=== PATIENT | male | born 1950 | race Caucasian/White ===

== ENCOUNTER → 2016-12-11 | Outpatient (CLI) | payer MEDICARE ==
[2016-12-11 09:43] LABS: ALT 31 U/L (21-72); AST 33 U/L (17-59); Cholesterol 127 mg/dL (<200); Creatine Kinase 208 U/L (55-170); HDL Cholesterol 32 mg/dL (40-60); Triglycerides 127 mg/dL (<150)
== END | disposition home or self-care (01) ==
LOC: LABWHC1 08:47
PROVIDERS: ATTEND Internal Medicine Interventional Cardiology
DX: I25.10 Atherosclerotic heart disease of native coronary artery without angina pectoris (principal); E78.5 Hyperlipidemia, unspecified
CPT/HCPCS: 36415; 80061; 82550; 84450; 84460

== ENCOUNTER 2017-02-18 17:19 | Inpatient (IN) | payer MEDICARE ==
[2017-02-18] MEDS ORDERED: SODIUM CHLORIDE 0.9% 1,000 ML IV STA (17:53)
--- NOTE | 2017-02-18 17:56 | ED ---
Recheck HPI - General Chief Complaint: Recheck/Abnormal Lab/Rx Stated Complaint: ABNORMAL LABS, CK LEVEL HIGH Time Seen by Provider: 02/18/17 17:40 Source: patient, RN notes reviewed Mode of arrival: ambulatory Limitations: no limitations - History of Present Illness Initial Comments: Patient is a 67-year-old male presents to the emergency room for evaluation of the lab recheck. Patient states that he had a lab draw this morning at Dr. Cali's office as a routine for his physical next week. Patient states he received a phone call that his CK level was elevated and needed to come to the emergency room immediately. Patient does state that he was playing tennis for about 2 hours, an hour and a half before his blood draw. Patient does state that he works out daily. Patient states he either works out at [employer] or plays a sport daily. Patient states he has a history of [place] about 21 years ago. Patient states he follows up with psychiatric secretary, Dr. Hallman. Patient states last visit with Dr. Hallman in November he was told his CK level was slightly elevated but nothing concerning. Patient also states he was advised to immediately discontinue his simvastatin after receiving his CK level today. Patient states that recently he noticed he has on-and-off weakness/fatigue of his hands. Patient states it only lasts a few minutes and goes away. Patient denies any weakness right now. Patient denies any symptoms right now. Patient denies headache, dizziness, chest pain, shortness of breath, nausea, vomiting. - Related Data Home Medications Medication Instructions Recorded Confirmed Aspirin EC [Ecotrin Low Dose] 81 mg PO HS 02/18/17 02/18/17 Metoprolol Tartrate [Lopressor] 12.5 mg PO HS 02/18/17 02/18/17 Simvastatin [Zocor] 40 mg PO HS 02/18/17 02/18/17 Allergies Allergy/AdvReac Type Severity Reaction Status Date / Time No Known Allergies Allergy Verified 02/18/17 18:37 Review of Systems ROS Statement: Those systems with pertinent positive or pertinent negative responses have been documented in the HPI. ROS Other: All systems not noted in ROS Statement are negative. Past Medical History Past Medical History: Hyperlipidemia History of Any Multi-Drug Resistant Organisms: None Reported Past Surgical History: Orthopedic Surgery Past Psychological History: No Psychological Hx Reported Smoking Status: Former smoker Past Alcohol Use History: Rare Past Drug Use History: None Reported General Exam - General Exam Comments Initial Comments: Sitting in exam room, no acute distress. Limitations: no limitations General appearance: alert, in no apparent distress Head exam: Present: atraumatic, normocephalic, normal inspection Eye exam: Present: normal appearance, PERRL, EOMI Pupils: Present: normal accommodation ENT exam: Present: normal exam Neck exam: Present: normal inspection, full ROM. Absent: tenderness, lymphadenopathy Respiratory exam: Present: normal lung sounds bilaterally. Absent: respiratory distress Cardiovascular Exam: Present: regular rate, normal rhythm, normal heart sounds Extremities exam: Present: normal inspection, normal capillary refill Back exam: Present: normal inspection Neurological exam: Present: alert, oriented X3, CN II-XII intact, normal gait Expanded Patient oriented to: Present: person, place, time Speech: Present: fluid speech Sensory exam: Upper Extremity Light Touch: Normal, Lower Extremity Light Touch: Normal Motor strength exam: RUE: 5, LUE: 5, RLE: 5, LLE: 5 Psychiatric exam: Present: normal affect, normal mood Skin exam: Present: warm, dry, intact, normal color. Absent: rash Course Vital Signs 02/18/17 02/18/17 17:29 18:40 Temperature 97.6 F 98.3 F Pulse Rate 66 54 L Respiratory 18 Rate Blood Pressure 155/91 148/82 O2 Sat by Pulse 98 95 Oximetry Medical Decision Making - Medical Decision Making Patient is a 67-year-old male presents to the emergency room for reevaluation of elevated CK level. Patient's total CK level from this morning was 5076. Repeat total CK level drawn here 5956. Patient given 2 L of fluids down here. 200 mL of normal saline per hour ordered for upstairs. Consult with nephrology ordered. Case discussed with [facility] who agreed to admit for Dr. Palencia. - Lab Data Result diagrams: 02/18/17 17:45 02/18/17 17:45 Lab Results 02/18/17 02/18/17 02/18/17 Range/Units 17:45 17:45 17:45 WBC 6.0 (3.8-10.6) k/uL RBC 4.77 (4.30-5.90) m/uL Hgb 15.5 (13.0-17.5) gm/dL Hct 42.2 (39.0-53.0) % MCV 88.6 (80.0-100.0) fL MCH 32.5 (25.0-35.0) pg MCHC 36.7 (31.0-37.0) g/dL RDW 13.9 (11.5-15.5) % Plt Count 189 (150-450) k/uL Neutrophils % 56 % Lymphocytes % 31 % Monocytes % 6 % Eosinophils % 4 % Basophils % 1 % Neutrophils # 3.4 (1.3-7.7) k/uL Lymphocytes # 1.8 (1.0-4.8) k/uL Monocytes # 0.4 (0-1.0) k/uL Eosinophils # 0.2 (0-0.7) k/uL Basophils # 0.0 (0-0.2) k/uL Hyperchromasia Slight PT (9.0-12.0) sec INR (<1.2) APTT (22.0-30.0) sec Sodium 143 (137-145) mmol/L Potassium 4.0 (3.5-5.1) mmol/L Chloride 109 H (98-107) mmol/L Carbon Dioxide 23 (22-30) mmol/L Anion Gap 11 mmol/L BUN 21 H (9-20) mg/dL Creatinine 0.95 (0.66-1.25) mg/dL Est GFR (MDRD) Af Amer >60 (>60 ml/min/1.73 sqM) Est GFR (MDRD) Non-Af >60 (>60 ml/min/1.73 sqM) Glucose 87 (74-99) mg/dL Calcium 9.2 (8.4-10.2) mg/dL Magnesium 2.0 (1.6-2.3) mg/dL Total Bilirubin 1.5 H (0.2-1.3) mg/dL AST 147 H (17-59) U/L ALT 76 H (21-72) U/L Alkaline Phosphatase 76 (38-126) U/L Creatine Kinase 5968 H (55-170) U/L Total Creatine Kinase 5956 H (55-170) U/L CK-MB (CK-2) 4.0 H* (0.0-2.4) ng/mL CK-MB (CK-2) Rel Index Troponin I <0.012 (0.000-0.034) ng/mL Total Protein 7.6 (6.3-8.2) g/dL Albumin 4.5 (3.5-5.0) g/dL 02/18/17 Range/Units 17:45 WBC (3.8-10.6) k/uL RBC (4.30-5.90) m/uL Hgb (13.0-17.5) gm/dL Hct (39.0-53.0) % MCV (80.0-100.0) fL MCH (25.0-35.0) pg MCHC (31.0-37.0) g/dL RDW (11.5-15.5) % Plt Count (150-450) k/uL Neutrophils % % Lymphocytes % % Monocytes % % Eosinophils % % Basophils % % Neutrophils # (1.3-7.7) k/uL Lymphocytes # (1.0-4.8) k/uL Monocytes # (0-1.0) k/uL Eosinophils # (0-0.7) k/uL Basophils # (0-0.2) k/uL Hyperchromasia PT 10.4 (9.0-12.0) sec INR 1.0 (<1.2) APTT 22.2 (22.0-30.0) sec Sodium (137-145) mmol/L Potassium (3.5-5.1) mmol/L Chloride (98-107) mmol/L Carbon Dioxide (22-30) mmol/L Anion Gap mmol/L BUN (9-20) mg/dL Creatinine (0.66-1.25) mg/dL Est GFR (MDRD) Af Amer (>60 ml/min/1.73 sqM) Est GFR (MDRD) Non-Af (>60 ml/min/1.73 sqM) Glucose (74-99) mg/dL Calcium (8.4-10.2) mg/dL Magnesium (1.6-2.3) mg/dL Total Bilirubin (0.2-1.3) mg/dL AST (17-59) U/L ALT (21-72) U/L Alkaline Phosphatase (38-126) U/L Creatine Kinase (55-170) U/L Total Creatine Kinase (55-170) U/L CK-MB (CK-2) (0.0-2.4) ng/mL CK-MB (CK-2) Rel Index Troponin I (0.000-0.034) ng/mL Total Protein (6.3-8.2) g/dL Albumin (3.5-5.0) g/dL 02/18/17 18:29 Sinus bradycardia, ventricular rate 57 bpm, WV interval 166 ms, QRS duration 102 ms, QT/QTc 438/426 ms Disposition Clinical Impression: Elevated CK Disposition: ADMITTED IP TO THIS HOSP Condition: Stable Referrals: Connor Cali DO [Primary Care Provider] - 1-2 days Decision Date: 02/18/17
[2017-02-18 18:04] LABS: Basophils % (A) 1 %; CH 32.6; Eosinophils # (A) 0.2 k/uL (0-0.7); Eosinophils % (A) 4 %; HCT 42.2 % (39.0-53.0); HDW 3.15; HGB 15.5 gm/dL (13.0-17.5); Hyperchromasia Slight; Luc # (Auto) 0.13; Luc % (Auto) 2; Lymphocytes # (A) 1.8 k/uL (1.0-4.8); Lymphocytes % (A) 31 %; MCH 32.5 pg (25.0-35.0); MCHC 36.7 g/dL (31.0-37.0); MCV 88.6 fL (80.0-100.0); Mean Platelet Volume 7.8; Monocytes # (A) 0.4 k/uL (0-1.0); Monocytes % (A) 6 %; Neutrophils # (A) 3.4 k/uL (1.3-7.7); Neutrophils % (A) 56 %; RBC 4.77 m/uL (4.30-5.90); RDW 13.9 % (11.5-15.5); WBC (Perox) 5.74
[2017-02-18 18:12] LABS: ALT 76 U/L (21-72); AST 147 U/L (17-59); Alkaline Phosphatase 76 U/L (38-126); Anion Gap 11 mmol/L; Blood Urea Nitrogen 21 mg/dL (9-20); Calcium 9.2 mg/dL (8.4-10.2); Carbon Dioxide 23 mmol/L (22-30); Chloride 109 mmol/L (98-107); Glucose 87 mg/dL (74-99); Non-African American GFR(MDRD) >60 (>60 ml/min/1.73 sqM); Sodium 143 mmol/L (137-145); Total Bilirubin 1.5 mg/dL (0.2-1.3); Total Protein 7.6 g/dL (6.3-8.2)
[2017-02-18 18:26] LABS: Creatine Kinase 5968 U/L (55-170); Partial Thromboplastin Time 22.2 sec (22.0-30.0); Prothrombin Time 10.4 sec (9.0-12.0)
[2017-02-18 18:37] LABS: Troponin I <0.012 ng/mL (0.000-0.034)
[2017-02-18] MEDS ORDERED: SODIUM CHLORIDE 0.9% 1,000 ML IV ONE (18:45)
[2017-02-18 18:55] LABS: Creatine Kinase 5956 U/L (55-170)
[2017-02-18] MEDS ORDERED: NALOXONE 0.4 MG/ML 1 ML VIAL IV PRN (19:11)
[2017-02-18] MEDS ORDERED: ONDANSETRON 4 MG/2 ML VIAL IVP PRN (19:11)
[2017-02-18] MEDS ORDERED: IBUPROFEN 400 MG TAB PO PRN (19:11)
[2017-02-18 20:46] VITALS: BMI 26.9
[2017-02-18] MEDS ORDERED: ASPIRIN 81 MG CHEW PO SCH (21:30)
[2017-02-18] MEDS ORDERED: METOPROLOL TARTRATE 12.5 MG TAB PO SCH (21:30)
[2017-02-18] MEDS: PANTOPRAZOLE 40 MG TABLET PO SCH (22:29)
[2017-02-18] MEDS: SODIUM CHLORIDE 0.9% 1,000 ML IV SCH (22:30)
[2017-02-19] MEDS: SODIUM CHLORIDE 0.9% 1,000 ML IV SCH ×3 (02:53→07:55)
--- NOTE | 2017-02-19 08:23 | P.NPCON ---
History of Present Illness - Reason for Consult acute renal failure - History of Present Illness Reason for consultation: Rhabdomyolysis History of present illness: Patient is a 67-year-old male seen in renal consultation for rhabdomyolysis. Patient states he had blood work done and was advised to come to the hospital as his CK level was elevated. When he presented to the hospital his CK level was 5968. Patient states he does exercise regularly and did play about 2 hours of tennis yesterday. Patient states this is usual for him and he did not do anything out of the ordinary. He was also maintained on simvastatin daily which she said he was told to discontinue as of yesterday. He admits to good urine output. Patient states his urine is clear. No hematuria or dysuria. His GFR is at baseline with creatinine is 0.95 as of yesterday. Denies chest pain or shortness of breath. No vomiting or diarrhea. Oral intake is good. Patient states he feels fine except he did have some slight weakness in his hands recently. Denies any numbness or tingling. No other complaints at this time. Denies use of NSAIDs. He is currently maintained on normal saline at 200 mL an hour. Vital signs are stable. General: The patient appeared well nourished and normally developed. HEENT: Head exam is unremarkable. Neck is without jugular venous distension. LUNGS: Lungs are clear to auscultation and percussion. Breath sounds decreased. HEART: Rate and Rhythm are regular. First and second heart sounds normal. No murmurs, rubs or gallops. ABDOMEN: Abdominal exam reveals normal bowel sounds. Non-tender and non- distended. No evidence of peritonitis. EXTREMITITES: No clubbing, cyanosis, or edema. Past Medical History Past Medical History: Hyperlipidemia, Myocardial Infarction (PR) Additional Past Medical History / Comment(s): PR in 1995 Last Myocardial Infarction Date:: 1995 History of Any Multi-Drug Resistant Organisms: None Reported Past Surgical History: Orthopedic Surgery Additional Past Surgical History / Comment(s): angioplasty in 1995. infectious hepatitis in 1971 Past Anesthesia/Blood Transfusion Reactions: No Reported Reaction Past Psychological History: No Psychological Hx Reported Smoking Status: Former smoker Past Alcohol Use History: Rare Past Drug Use History: None Reported - Past Family History Sister(s) Family Medical History: Cancer Additional Family Medical History / Comment(s): leukemia- Medications and Allergies Home Medications Medication Instructions Recorded Confirmed Type Aspirin EC [Ecotrin Low Dose] 81 mg PO HS 02/18/17 02/18/17 History Metoprolol Tartrate [Lopressor] 12.5 mg PO HS 02/18/17 02/18/17 History Simvastatin [Zocor] 40 mg PO HS 02/18/17 02/18/17 History Allergies Allergy/AdvReac Type Severity Reaction Status Date / Time No Known Allergies Allergy Verified 02/18/17 18:37 Physical Exam Vitals: Vital Signs Temp Pulse Pulse Resp BP BP Pulse Ox 02/19/17 07:00 97.9 F 52 L 18 147/73 94 L 02/19/17 00:00 53 L 17 02/18/17 22:42 97.9 F 53 L 17 153/77 93 L 02/18/17 21:06 167/82 02/18/17 20:26 97.5 F L 53 L 16 167/93 96 02/18/17 19:59 98.4 F 79 18 157/85 99 02/18/17 19:29 57 L 166/88 97 02/18/17 18:40 98.3 F 54 L 148/82 95 02/18/17 17:29 97.6 F 66 18 155/91 98 Intake and Output 02/18/17 02/19/17 02/19/17 22:59 06:59 14:59 Intake Total 280 1968 Balance 280 1968 Intake: Intake, IV Titration 1968 Amount Sodium Chloride 0.9% 1968 000 ml @ 200 mls/hr IV . Q5H [facility] Rx#:[id number] Oral 280 Other: Voiding Method Toilet Toilet Urinal Urinal # Voids 2 2 Weight 87.543 kg 87.543 kg Results - Lab Results Most recent lab results Calcium 9.2 mg/dL (8.4-10.2) 02/18/17 17:45 Magnesium 2.0 mg/dL (1.6-2.3) 02/18/17 17:45 02/18/17 17:45 02/18/17 17:45 Assessment and Plan Plan: Assessment: #1. Rhabdomyolysis secondary to simvastatin as well as exercise although it wasn't out of the ordinary for him. CK level elevated at 5968 on admission. #2. Transaminitis which can also be from simvastatin. Questionable underlying liver disease. #3. Benign hypertension. Controlled. Plan: Check urinalysis. Check labs and a CK level today. If improving, will decrease rate of IV fluids. Simvastatin held. Avoid nephrotoxic agents - discontinue NSAIDs. Thank you for the consultation. I will continue to follow the patient with you during his hospital stay.
[2017-02-19 08:52] LABS: Anion Gap 9 mmol/L; Blood Urea Nitrogen 12 mg/dL (9-20); Calcium 8.3 mg/dL (8.4-10.2); Carbon Dioxide 22 mmol/L (22-30); Chloride 113 mmol/L (98-107); Glucose 88 mg/dL (74-99); Non-African American GFR(MDRD) >60 (>60 ml/min/1.73 sqM); Potassium 4.1 mmol/L (3.5-5.1); Sodium 144 mmol/L (137-145)
[2017-02-19] MEDS: PANTOPRAZOLE 40 MG TABLET PO SCH (09:03)
[2017-02-19 09:09] LABS: Creatine Kinase 2778 U/L (55-170)
[2017-02-19 10:12] LABS: Appearance,Urine Clear (Clear); Bilirubin,Urine Negative (Negative); Glucose,Urine (UA) Negative (Negative); Ketones,Urine Negative (Negative); Leukocyte Esterase,Urine Negative (Negative); Nitrite,Urine Negative (Negative); Protein,Urine Negative (Negative); Specific Gravity,Urine 1.006 (1.001-1.035); UA Billing (MACRO vs. MICRO) CHEM; Urobilinogen,Urine <2.0 mg/dL (<2.0)
[2017-02-19 15:50] VITALS: BP 157/72; PULSE 48; RESP 16; TEMP 97.6
--- NOTE | 2017-02-20 08:12 | HP ---
HISTORY AND PHYSICAL AND DISCHARGE SUMMARY: DATE OF SERVICE: 02/19/2017 CHIEF COMPLAINT: Abnormal labs. HISTORY OF PRESENT ILLNESS: This 67-year-old gentleman with past medical history of multiple medical problems including history of hyperlipidemia, history myocardial infarction being followed by Dr. Cali in the outpatient setting apparently had abnormal labs prior to the anal fistulous. The patient came to [facility] and admitted for further evaluation and treatment. significant find and subsequently came with IV hydration. Otherwise there is no history of fever, rigors. No history of headache, loss of consciousness or seizures. The patient apparently was playing tennis also. PAST MEDICAL HISTORY: History of hyperlipidemia, history of myocardial infarction, history of CAD stent. Medications prior to admission include home medications: 1. Metoprolol 12.5 mg. 2. Aspirin. 3. Statins. ALLERGIES: None. FAMILY HISTORY: History of cancer, leukemia. SOCIAL HISTORY: Previous history smoking, alcohol intake. REVIEW OF SYSTEMS: ENT: No diminished hearing or vision. CARDIOVASCULAR: No angina. RESPIRATORY: As mentioned earlier. GI: No nausea. : No dysuria. NERVOUS SYSTEM: No numbness or weakness. ALLERGY/IMMUNOLOGY: No asthma or hayfever. MUSCULOSKELETAL: As mentioned earlier. HEMATOLOGY/ONCOLOGY: No history of anemia. ENDOCRINE: No history of diabetes or hypothyroidism. CONSTITUTIONAL: As mentioned earlier. DERMATOLOGY: Negative. RHEUMATOLOGY: Negative. PSYCHIATRY: As mentioned earlier. PHYSICAL EXAMINATION: The patient is alert and oriented x3. Pulse is 50, blood pressure 160/80, respirations 20, temperature 98.1, pulse ox 94% on room air. HEENT: Conjunctivae normal. NECK: No jugular venous distention. CARDIOVASCULAR: S1, S2. RESPIRATORY: Breath sounds diminished at the bases. Scattered rhonchi and crackles. ABDOMEN: Soft, nontender, no mass palpable. LEGS: No edema, no swelling. NERVOUS SYSTEM: Higher function as mentioned. Moves all four limbs. Mild diffuse weakness. No focal motor sensory deficits. LYMPHATICS: No lymphadenopathy in the neck, axillae or groin. SKIN: No rash, ulcer or bleeding. Labs at this time show CBC within normal limits and total bilirubin is 1.5. AST 147, ALT 76. Other labs are noted. ASSESSMENT: 1. Acute rhabdomyolysis for evaluation, possibly drug induced. 2. Elevated liver function tests. 3. History of hyperlipidemia. 4. History of myocardial infarction. 5. History of degenerative joint disease. RECOMMENDATIONS AND DISCUSSION: In this 67-year-old gentleman who presented with multiple complex medical issues, the CK is elevated most likely because of drug induced and multifactorial. I would recommend to continue the IV hydration. The patient improved with IV hydration and following medication recommended after discharge. 1. Diet is cardiac. 2. Activity is limited until follow up. 3. Follow up with Dr. Cali in 2 to 3 days. 4. No statins. 5. Medications are: Ecotrin 81 mg q.h.s. 6. Lopressor 12.5 mg q.h.s. 7. Follow closely. 8. In the outpatient setting CBC and CMP and CK. MTDD
== END 2017-02-19 16:44 | disposition home or self-care (01) | DRG 558 ==
LOC: EC 17:19 → 5MS5E 19:41
PROVIDERS: ADMIT Hospitalist; ATTEND Hospitalist
DX: M62.82 Rhabdomyolysis (principal); N17.9 Acute kidney failure, unspecified; I10 Essential (primary) hypertension; E78.5 Hyperlipidemia, unspecified; I25.10 Atherosclerotic heart disease of native coronary artery without angina pectoris; I25.2 Old myocardial infarction; M19.90 Unspecified osteoarthritis, unspecified site; R79.89 Other specified abnormal findings of blood chemistry; T46.6X5A Adverse effect of antihyperlipidemic and antiarteriosclerotic drugs, initial encounter; Z79.899 Other long term (current) drug therapy; Z79.82 Long term (current) use of aspirin; Z87.891 Personal history of nicotine dependence; Z95.5 Presence of coronary angioplasty implant and graft; Y92.009 Unspecified place in unspecified non-institutional (private) residence as the place of occurrence of the external cause
CPT/HCPCS: 36415; 80048; 80053; 81003; 82550; 82553; 83735; 84484; 85025; 85610; 85730; 93005; 96360; 96361; 99284

== ENCOUNTER 2018-12-08 10:18 | Day surgery (SDC) | payer MEDICARE ==
[2018-12-07 08:46] VITALS: BMI 26.9
[~2018-12-08 10:18] MED LIST: LACTATED RINGERS 1,000 ML IV SCH; LIDOCAINE 1% 20 ML VIAL (10MG/ML) FOR IV START INTRADERMA PRN
[2018-12-08 10:31] VITALS: RESP 18; TEMP 97
[2018-12-08] MEDS ORDERED: LACTATED RINGERS 1,000 ML IV ONE (10:32)
[2018-12-08] MEDS ORDERED: PROPOFOL 10 MG/ML 20 ML VIAL IV ONE (11:57)
[2018-12-08] MEDS ORDERED: MIDAZOLAM 2 MG/2 ML VIAL ONE (11:57)
--- NOTE | 2018-12-08 12:30 | P.PCN ---
Date of Procedure: 12/08/18 Procedure(s) Performed: Procedure: Total colonoscopy. Preoperative diagnosis: History of polyps and anemia. Postoperative diagnosis: Mild diverticulosis with no evidence of acute diverticulitis or strictures. Preparation: HalfLytely prep. Sedation: Was provided by anesthesia. Brief clinical history: The patient is a 68-year-old male with history of polyps. His last exam was in 2012. At this time he is not having any abdominal complaints, bleeding or anemia. Procedure: With the patient on his left lateral decubitus position and after informed consent and adequate sedation, the perianal area was inspected and it did not show any fissures or fistulas. There were no masses felt on digital r ectal examination. The Olympus CFH 190L video colonoscope was then inserted in the rectum in the usual fashion and advanced to the cecum. There were rare small diverticular orifices seen in the sigmoid and around the hepatic flexure with no evidence of acute diverticulitis or strictures. The mucosa appeared healthy. No polyps or tumors were seen. I retroflexed the endoscope in the rectum before the endoscope was withdrawn. The patient tolerated the procedure well. Plan: The patient was reassured. Discussed dietary measures. He will follow up with you as planned and I recommended repeat exam in 5 years.
[2018-12-08 12:46] VITALS: BP 137/89; PULSE 50
== END 2018-12-08 13:00 | disposition home or self-care (01) ==
LOC: ORWHC2ENDO 10:18
DX: K57.90 Diverticulosis of intestine, part unspecified, without perforation or abscess without bleeding (principal); I25.10 Atherosclerotic heart disease of native coronary artery without angina pectoris; I10 Essential (primary) hypertension; D64.9 Anemia, unspecified; E78.5 Hyperlipidemia, unspecified; Z86.010 Personal history of colon polyps; I25.2 Old myocardial infarction; Z87.891 Personal history of nicotine dependence; Z86.19 Personal history of other infectious and parasitic diseases; Z79.82 Long term (current) use of aspirin; Z79.899 Other long term (current) drug therapy
CPT/HCPCS: 45378; J2250; J2704

== ENCOUNTER → 2019-03-22 | Outpatient (CLI) | payer MEDICARE ==
[2019-03-22 06:30] LABS: African American GFR (CKD) >90 (>60 ml/min/1.73 sqM); Blood Urea Nitrogen 22 mg/dL (9-20)
--- NOTE | 2019-03-22 08:32 | CT ---
EXAMINATION TYPE: CT urogram wo/w con DATE OF EXAM: 03/22/2019 COMPARISON: None HISTORY: 69-year-old male hematuria TECHNIQUE: Contiguous axial scanning of the abdomen and pelvis performed without and with IV Contrast , patient injected with 100 mL of Isovue 300. Delayed images through the kidneys and bladder were obt ained. Coronal/sagittal reconstructions performed. 3-D reconstructions generated on a dedicated [employer] workstation. CT DLP: 1954 mGycm Automated exposure control for dose reduction was used. FINDINGS: Heart normal size without pericardial effusion. Minimal emphysematous change seen in the lower lungs with dependent atelectasis. No pleural effusion. Small hiatal hernia. Liver mildly enlarged at 18.0 cm. No focal lesion seen. Portal venous system is patent. No biliary du ctal dilatation. Gallbladder, adrenal glands, spleen with hilar splenules, and pancreas appear within normal limits. Moderate atherosclerotic calcifications within the abdominal aorta. Segmental fusiform ectasia of the infrarenal abdominal aorta measuring 2.6 cm and 2.7 cm more inferiorly. No mykel aneurysm. No dilated small bowel, free fluid, or free air. A few prominent but nonenlarged left paramedian mid mesenteric lymph nodes measure up to 6 mm. Mild to moderate stool burden. Normal appendix. A couple left-sided colonic diverticula without peric olonic inflammatory change. Symmetric uptake and excretion of contrast from both kidneys. There is a punctate 3 mm nonobstructive calculus lower pole left kidney. Subcentimeter hypodensity lateral upper pole right kidney too small for accurate CT characterization, likely tiny cysts. No suspicious enhancing renal lesion. No hydronephrosis. No suspicious filling defect within the renal collecting system or along the course of either ureter. No significant slightly larger at 4.8 cm with central prostatic calcifications. Bladder partially dis tended. The posterior half bladder opacifies with contrast on the delayed images and shows no suspici ous filling defect. Bones: Osteitis pubis. Mild degenerative changes of the hips. Degenerative disc disease throughout th e mid to lower lumbar spine. Facet arthropathy lower lumbar spine. IMPRESSION: 1. TINY SUBCENTIMETER HYPODENSITY UPPER POLE RIGHT KIDNEY TOO SMALL FOR ACCURATE CT CHARACTERIZATION, LIKELY A TINY CORTICAL CYST. 2. 3 MM NONOBSTRUCTIVE LEFT LOWER POLE RENAL CALCULUS. 3. NO ENHANCING RENAL MASS, HYDRONEPHROSIS, OR SUSPICIOUS FILLING DEFECT WITHIN THE RENAL COLLECTING SYSTEM OR ALONG THE COURSE OF EITHER URETER. NO UROTHELIAL LESION SEEN ALONG THE POSTERIOR HALF OF TH E OPACIFIED BLADDER. 4. MILD PROSTATOMEGALY (4.8 CM WIDE). 5. SMALL HIATAL HERNIA.
== END | disposition home or self-care (01) ==
LOC: RADCTMAIN 05:55
PROVIDERS: ATTEND Urology
DX: N28.89 Other specified disorders of kidney and ureter (principal); N20.0 Calculus of kidney; N40.0 Benign prostatic hyperplasia without lower urinary tract symptoms; K44.9 Diaphragmatic hernia without obstruction or gangrene
CPT/HCPCS: 82565; 84520; 74178; 36415; 74400; Q9967

== ENCOUNTER 2022-12-30 10:48 | Day surgery (SDC) | payer MEDICARE ==
[~2022-12-30 10:48] MED LIST changes: +ALPRAZolam 0.25 MG TAB PO PRN; +ALPRAZolam 0.5 MG TAB PO PRN; +ASPIRIN 325 MG TAB PO STA; +ATORVASTATIN 80 MG TAB PO STA; +HEPARIN SODIUM,PORCINE 10,000 UNIT in SODIUM CHLORIDE 0.9% 1,000 ML IRRIGATION PRN; +HEPARIN SODIUM,PORCINE 2,500 UNIT in SODIUM CHLORIDE 0.9% 250 ML IRRIGATION PRN; -LACTATED RINGERS 1,000 ML IV SCH; -LIDOCAINE 1% 20 ML VIAL (10MG/ML) FOR IV START INTRADERMA PRN; +NITROGLYCERIN SL TABS 0.4 MG TAB SUBLINGUAL PRN; +SODIUM CHLORIDE 0.9% 1,000 ML in EMPTY BAG 1 BAG IV SCH
[2022-12-30] MEDS ORDERED: SODIUM CHLORIDE 0.9% 1,000 ML IV ONE (10:54)
[2022-12-30 11:08] VITALS: RESP 16; TEMP 98.2
[2022-12-30] MEDS: MIDAZOLAM 2 MG/2 ML VIAL IV ONE ×2 (12:28→12:30)
[2022-12-30] MEDS ORDERED: LIDOCAINE 1% INJ 10MG/ML (5 ML VIAL-PF) SQ ONE (12:30)
[2022-12-30] MEDS ORDERED: fentaNYL (PF) 50 MCG/ML 2 ML AMP IV ONE ×2 (12:30→12:58)
[2022-12-30] MEDS ORDERED: VERAPAMIL SYRINGE (5 MG/10 ML) INTRAARTER ONE (12:31)
[2022-12-30] MEDS ORDERED: MIDAZOLAM 2 MG/2 ML VIAL IV ONE (12:37)
[2022-12-30] MEDS: HEPARIN SODIUM 1,000 UN/ML (10ML VL) IV ONE ×2 (12:37→12:58)
[2022-12-30] MEDS ORDERED: IOPAMIDOL-370 100ML BTL INJ ONE ×2 (12:50→13:11)
[2022-12-30] MEDS ORDERED: NITROGLYCERIN 1000MCG/10ML SYRINGE INTRACORON ONE (13:05)
[2022-12-30] MEDS ORDERED: SODIUM CHLORIDE 0.9% 1,000 ML IV SCH (13:20)
--- NOTE | 2022-12-30 16:16 | CC ---
CARDIAC CATHETERIZATION REPORT PROCEDURES PERFORMED: 1. Left heart catheterization and coronary angiography. 2. IFR measurement of mid LAD lesion. PERFORMED BY: Dr. John Hallman. ANESTHESIA: Moderate conscious sedation time was 42 minutes. The patient was administered Versed and fentanyl. Oxygen saturation, hemodynamics, and EKG were monitored closely. CLINICAL INFORMATION: Mr. 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 He had no significant disease in other vessels. He is a very active person, exercises a lot. He walked for 12 minutes on a standard Anthony protocol, had anterolateral questionable changes with inferobasal hypokinesia at rest and with exercise. He was therefore advised cardiac cath with concern that he may have progression of disease. The risks, benefits, options, and rationale were explained. PROCEDURE NOTE: Under local anesthesia and strict aseptic precautions, a 6-Irish introducer was placed in the right radial artery. Using a JL3.5 and JR4 catheters, I performed coronary angiography and the same right Lorraine catheter was used to check LV pressure, but LV- gram was not performed. Following this, because of a mid LAD suspicious lesion of about 50%, I performed IFR using a JL3.5 guide catheter and an Omni wire. IFR was unremarkable at 1.04. The sheath was taken out. A TR band was applied as per protocol with saturation the fingers of the right hand of 95%. He was sent to the room in a stable condition. Findings were discussed with the patient and . He will be discharged later on today after some hydration and ensuring that the right radial site is clean and dry. CARDIAC CATHETERIZATION FINDINGS: The left ventricular end-diastolic pressure was about 9 mmHg without any gradient across aortic valve. CORONARY ANGIOGRAPHY FINDINGS: RIGHT CORONARY ARTERY: This is a dominant vessel. Technically, the proximal and mid area, which was dilated, is widely patent with brisk flow. There is no more than a 20% to 25% narrowing. Distally, it bifurcates into smaller PDA and PLV, both of which have minor irregularities. No significant disease. Distal RCA is smaller in caliber and the branches are also smaller, but there is no significant disease noted. LEFT MAIN CORONARY ARTERY: This is a short patent disease-free vessel that bifurcates into LAD and circumflex. Left main itself is short and free of significant disease. LEFT ANTERIOR DESCENDING CORONARY ARTERY: Good-caliber vessel, gives off an early diagonal branch, runs along the anterior wall. In the midportion, there is about a 40% to 50% narrowing after a septal branch and also after a very early diagonal branch. The vessel then improves in caliber, runs all the way to the apex, curves over the apex to supply a sizable area of inferoapical myocardium. No other significant disease other than a 45% to 50% mid LAD lesion, which is located at a bed. There is an early diagonal branch that comes off and is free of significant disease. LEFT POSTERIOR CIRCUMFLEX CORONARY ARTERY: Technically, a nondominant vessel that gives off what seems to be a single obtuse marginal and then runs in the AV groove and has minor irregularities. No significant disease. Distal circumflex branches have minor irregularities, but no significant disease is noted. The diagonal branch almost look like a ramus in some views, but appears to be coming off from LAD very proximally. LV-gram was not performed. FINAL IMPRESSION: This patient has normal filling pressures. No gradient. Right-dominant system with patent right coronary artery without significant disease that was dilated in 1992. Circumflex is nondominant, minor irregularities, no significant disease. Mid left anterior descending has about a 45% to 50% lesion, large caliber, large distribution vessel. RECOMMENDATIONS: I recommended IFR and proceeded to perform this in the same setting. IFR PROCEDURE DETAILS: I used the left Lorraine 3.5 curved catheter and an Omni wire. Wire was appropriately zeroed and balanced as per protocol. IFR measurement was performed after giving some nitroglycerin and taking the catheter away from the ostium of the LAD. Three values were obtained. All of these were between 1.03 and 1.05. IFR was therefore normal. The IFR wire was taken out. The patient received a total of 6000 units of heparin. ACT was 278. The sheath was taken out and TR band applied as per protocol with saturation in the fingers of 95%. The patient tolerated the procedure well. No complications. FINAL IMPRESSION: This patient has a right-dominant system, patent right coronary artery that was dilated in 1992 and also no significant disease in the nondominant circumflex. Left anterior descending, diagonal, and the proximal portion are free of significant disease. Mid left anterior descending has a 45% to 50% lesion and normal IFR. Distal left anterior descending and also the inferoapical portion of the left anterior descending are free of significant disease. Left anterior descending is a large distribution vessel. RECOMMENDATIONS: Findings were discussed with the patient and . I am recommending continued medical therapy with aggressive risk factor modification. No intervention. IFR findings and angiographic findings were reviewed with the patient and . He will be discharged later on today. MMODL / IJN: [id number] /
[2022-12-30 16:44] VITALS: BP 118/62; PULSE 52
== END 2022-12-30 17:15 | disposition home or self-care (01) ==
LOC: CATHCVL 10:48
PROVIDERS: ATTEND Internal Medicine Interventional Cardiology
DX: I25.10 Atherosclerotic heart disease of native coronary artery without angina pectoris (principal); I25.2 Old myocardial infarction; I10 Essential (primary) hypertension; E78.00 Pure hypercholesterolemia, unspecified; I25.9 Chronic ischemic heart disease, unspecified; I49.3 Ventricular premature depolarization; F17.210 Nicotine dependence, cigarettes, uncomplicated; M60.9 Myositis, unspecified; Z98.61 Coronary angioplasty status; Z79.02 Long term (current) use of antithrombotics/antiplatelets; Z79.82 Long term (current) use of aspirin; Z79.899 Other long term (current) drug therapy
CPT/HCPCS: 99152; 99153 ×2; 93458; 93799; C1887; C1769 ×2; C1894; J2250; J2001; J3010; J1644; Q9967

== ENCOUNTER 2024-09-15 10:48 | Day surgery (SDC) | payer MEDICARE ==
[2024-09-14 09:24] VITALS: BMI 27.5
[2024-09-15 11:47] VITALS: RESP 16; TEMP 97.4
[2024-09-15] MEDS: IV FLUID CONTINUATION 1,000 ML IV ONE (11:54)
[2024-09-15] MEDS: LACTATED RINGERS 1,000 ML IV SCH (11:56)
[2024-09-15] MEDS ORDERED: PROPOFOL 10 MG/ML 20 ML VIAL IV ONE (12:57)
--- NOTE | 2024-09-15 13:11 | P.PCN ---
Date of Procedure: 09/15/24 Procedure(s) Performed: BRIEF HISTORY: Patient is a 74-year-old pleasant white male scheduled for an elective colonoscopy as a part of screening for colon cancer. PROCEDURE PERFORMED: Colonoscopy with snare polypectomy. PREOPERATIVE DIAGNOSIS: Screening for colon cancer. IV sedation per Anesthesia. PROCEDURE: After informed consent was obtained, the patient, was brought into the endoscopy unit. IV sedation was administered by Anesthesia under continuous monitoring. Digital rectal examination was normal. Initially the Olympus CF-160 flexible video colonoscope was then inserted in the rectum, gradually advanced into the cecum without any difficulty. Careful examination was performed as the scope was gradually being withdrawn. Ileocecal valve and the appendiceal orifice were visualized and appeared normal. Prep was excellent. Mucosa of the cecum had a 5 mm polyp removed by cold snare polypectomy. In the ascending colon there were 3 polyps measuring between 3 mm to 5 mm in size removed by cold snare polypectomy. Rest of the, ascending colon, transverse colon, descending colon, sigmoid colon, and rectum appeared normal. Scattered sigmoid diverticulosis. Retroflexion was performed in the rectum and no lesions were seen. The patient tolerated the procedure well. IMPRESSION: 5 mm cecal polyp status post cold snare polypectomy 3 mm millimeter x 2 and 5 mm ascending colon polyp status post cold snare polypectomy Scattered sigmoid diverticulosis RECOMMENDATIONS: Findings of this examination were discussed with the patient as well as his family. He was advised to follow-up with the biopsy results. If the biopsy reveals adenoma he can have repeat colonoscopy in 5 years..
[2024-09-15 13:40] VITALS: BP 152/82; PULSE 47
== END 2024-09-15 13:55 | disposition home or self-care (01) ==
LOC: ORWHC2ENDO 10:48
PROVIDERS: ATTEND Internal Medicine Gastroenterology
DX: Z12.11 Encounter for screening for malignant neoplasm of colon (principal); K57.30 Diverticulosis of large intestine without perforation or abscess without bleeding; D12.2 Benign neoplasm of ascending colon; D12.0 Benign neoplasm of cecum
CPT/HCPCS: 88305; 45385; J2704